=== PATIENT | male | born 1945 | race Caucasian/White ===

== ENCOUNTER 2025-05-11 19:40 | Inpatient (IN) | payer OTHER ==
[~2025-05-11] VITALS: Ht 183.5 cm; Wt 104.5 kg
[2025-05-11 19:55] VITALS: PULSE 91; RESP 24; O2SAT 68
[2025-05-11] MEDS ORDERED: 0.9% SODIUM CHLORIDE 10 ML SYRINGE IVP PRN (20:00)
[2025-05-11 20:09] LABS: PLATELET COUNT (AUTO) 133 K/uL (150-450); RED BLOOD CELL COUNT(AUTO) 3.97 MIL/uL (4.50-5.90); RED CELL DISTRIBUTION WIDTH 15.3 % (11.5-14.5); WHITE BLOOD COUNT (AUTO) 8.6 K/uL (4.5-11.0)
[2025-05-11 20:11] LABS: APPEARANCE,URINE CLEAR (CLEAR); GLUCOSE, URINE (UA) NEGATIVE (NEGATIVE); LEUKOCYTE ESTERASE ,URINE NEGATIVE (NEGATIVE); NITRATE,URINE NEGATIVE (NEGATIVE); OCCULT BLOOD,URINE NEGATIVE (NEGATIVE); SPECIFIC GRAVITIY, URINE 1.018 (1.003-1.030)
[2025-05-11 20:21] LABS: COVID AG,FIA SOURCE NASAL SWAB
[2025-05-11 20:22] LABS: CALCIUM, TOTAL 8.8 mg/dL (8.8-10.5); CREATININE 2.02 mg/dL (0.60-1.30); GLOMERULAR FILTR. RATE CALC 32 mL/min (>60); GLUCOSE,RANDOM 325 mg/dL (70-110); SODIUM SERUM 147 mmol/L (136-145); UREA NITROGEN, BLOOD 46 mg/dL (7-18)
[2025-05-11 20:26] LABS: ASPARTATE AMINOTRANSFERASE 105 U/L (15-37); CREATINE KINASE, TOTAL ONLY 82 U/L (39-308); GLUCOSE,RANDOM 332 mg/dL (70-110); TOTAL PROTEIN, SERUM 6.0 g/dL (6.4-8.2)
[2025-05-11 20:27] LABS: ABG BASE EXCESS -20.0 mmol/L (-2.0-3.0); ABG CARBOXYHEMOGLOBIN 0.6 % (0.5-1.5); ABG HCO3 9.2 mmol/L (21.0-28.0); ABG METHEMOGLOBIN 0.8 % (0.0-1.5); ABG OXYGEN CONTENT 17.3 mL/dL (15.0-23.0); ABG OXYGEN SATURATION 87.5 % (94.0-98.0); ABG OXYHEMOGLOBIN 86.3 % (94.0-98.0); ABG PH 6.826 (7.350-7.450); ABG TOTAL HEMOGLOBIN 14.2 G/dL (13.5-17.5); FRACTIONATED INSPIRED OXYGEN 100.0 % (21-100.0); PO2, ARTERIAL BG 88.3 mmHg (83.0-108.0); SOURCE, BLOOD GAS ARTERIAL; TEMPERATURE, FAHRENHEIT, BG 98.6 FAHREN (96.0-98.6)
[2025-05-11 20:28] LABS: ABG PCO2 87 mmHg (32.0-48.0); ALLEN TEST, BLOOD GAS Positive; FLOW, BLOOD GAS 0.00 L/min (0.00-15.00); O2 DEVICE,BLOOD GAS VENTILATOR (ROOM AIR); PEEP,BG 8 cm H2O; SET RATE, BG 24.0 min.; SITE, BLOOD GAS LFT RADIAL; VT, ABG 400 ml
[2025-05-11 20:31] LABS: RBC MORPHOLOGY COMMENT ABNORMAL RBC MORPH; TROPONIN I-HIGH SENSITIVITY 12 ng/L (<76)
[2025-05-11 20:42] LABS: INFLUENZA TYPE A NEGATIVE FOR TYPE A (NEGATIVE); INFLUENZA TYPE B NEGATIVE FOR TYPE B (NEGATIVE); SARS-COV2 (COVID) ANTIGEN,FIA Negative (Negative)
[2025-05-11] MEDS: NOREPINEPHRINE 8 MG/0.9 % NACL 250 ML IV PRN (20:43)
[2025-05-11 20:44] LABS: LACTIC ACID 14.6 mmol/L (0.4-2.0)
[2025-05-11] MEDS: SODIUM CHLORIDE 0.9% 1,000 ML IV ONE ×2 (20:50→22:22)
[2025-05-11] MEDS: PROPOFOL 1000 MG/ISO-OSM 100 ML IV PRN (21:10)
[2025-05-11 22:15] VITALS: PULSE 89; RESP 33; O2SAT 94
[2025-05-11] MEDS: CEFEPIME HCL 2 GM in DEXTROSE 5%-WATER 50 ML IV ONE (22:22)
[2025-05-11] MEDS: SODIUM BICARBONATE [ADULT] 8.4% 50 MEQ/50 ML SYRINGE IVP ONE (22:22)
[2025-05-11] MEDS ORDERED: ALBUTEROL SULFATE 2.5 MG/0.5 ML NEB SOLUTION NEB PRN (22:45)
[2025-05-11] MEDS ORDERED: MAGNESIUM HYDROXIDE SUSPENSION 30 ML UDCUP PO PRN (22:45)
[2025-05-11] MEDS ORDERED: IPRATROPIUM BROMIDE 0.5 MG/2.5 ML NEB SOLUTION NEB PRN (22:45)
[2025-05-11] MEDS ORDERED: BISACODYL 10 MG RECTAL RECTAL SUPPOSITORY PR PRN (22:45)
[2025-05-11] MEDS ORDERED: ACETAMINOPHEN 325 MG TABLET PO PRN (22:45)
[2025-05-11] MEDS ORDERED: ZOLPIDEM TARTRATE 5 MG TABLET PO PRN (22:45)
[2025-05-11] MEDS ORDERED: HYDROCODONE/ACETAMINOPHEN 5-325 MG TABLET PO PRN (22:45)
[2025-05-11] MEDS ORDERED: MORPHINE SULFATE 2 MG/ML SYRINGE IVP PRN (22:45)
[2025-05-11 22:51] LABS: ABG BASE EXCESS -12.6 mmol/L (-2.0-3.0); ABG CARBOXYHEMOGLOBIN 0.7 % (0.5-1.5); ABG HCO3 14.6 mmol/L (21.0-28.0); ABG METHEMOGLOBIN 0.9 % (0.0-1.5); ABG OXYGEN CONTENT 18.3 mL/dL (15.0-23.0); ABG OXYGEN SATURATION 96.7 % (94.0-98.0); ABG OXYHEMOGLOBIN 95.2 % (94.0-98.0); ABG PCO2 55 mmHg (32.0-48.0); ABG PH 7.110 (7.350-7.450); ABG TOTAL HEMOGLOBIN 13.6 G/dL (13.5-17.5); ALLEN TEST, BLOOD GAS Positive; FLOW, BLOOD GAS 0.00 L/min (0.00-15.00); FRACTIONATED INSPIRED OXYGEN 80.0 % (21-100.0); O2 DEVICE,BLOOD GAS VENTILATOR (ROOM AIR); PEEP,BG 10 cm H2O; PO2, ARTERIAL BG 108.8 mmHg (83.0-108.0); SET RATE, BG 24.0 min.; SITE, BLOOD GAS LFT RADIAL; SOURCE, BLOOD GAS ARTERIAL; TEMPERATURE, FAHRENHEIT, BG 98.6 FAHREN (96.0-98.6); VT, ABG 400 ml
[2025-05-11] MEDS: VANCOMYCIN 1GM/WATER(PEG/NADA) 200 ML IV ONE (22:55)
[2025-05-11] MEDS: *CLINICAL-CEFEPIME DOSING CLINICAL ONE (23:34)
[2025-05-11] MEDS: MetroNIDAZOLE 500 MG/NACL 100 ML IV SCH (23:57)
[2025-05-12] VITALS (16 sets, daily range): BP systolic 93–181; BP diastolic 51–84; PULSE 41–107; RESP 30–36; TEMP 88.8–94.8; O2SAT 92–100
[2025-05-12] MEDS ORDERED: DEXTROSE 50%-WATER 25 GM/50 ML SYRINGE IVP PRN
[2025-05-12 01:04] LABS: CALCIUM, TOTAL 7.7 mg/dL (8.8-10.5); CREATININE 2.41 mg/dL (0.60-1.30); GLOMERULAR FILTR. RATE CALC 26.0 mL/min (>60); GLUCOSE,RANDOM 233.0 mg/dL (70-110); SODIUM SERUM 147.0 mmol/L (136-145); UREA NITROGEN, BLOOD 47.0 mg/dL (7-18)
[2025-05-12 01:09] LABS: ASPARTATE AMINOTRANSFERASE 470.0 U/L (15-37); CREATINE KINASE, TOTAL ONLY 169.0 U/L (39-308); PHOSPHORUS 5.1 mg/dL (2.5-4.9); TOTAL PROTEIN, SERUM 5.6 g/dL (6.4-8.2)
[2025-05-12 01:17] LABS: TROPONIN I-HIGH SENSITIVITY 204 ng/L (<76)
[2025-05-12] MEDS: SODIUM ZIRCONIUM CYCLOSILICATE 5 GM POWDER PACKET PO ONE (01:18)
[2025-05-12] MEDS: HEPARIN SODIUM 25000 UNITS/D5W 250 ML IV PRN (02:46)
[2025-05-12 03:26] LABS: GLUCOMETER DEV NAME(LOC) ICU.S6; GLUCOSE,POINT OF CARE 209 MG/DL (70-110)
[2025-05-12] MEDS ORDERED: VANCOMYCIN 1GM/WATER(PEG/NADA) 200 ML IV PRN (04:00)
[2025-05-12 05:58] LABS: ASPARTATE AMINOTRANSFERASE 522.0 U/L (15-37); CALCIUM, TOTAL 8.0 mg/dL (8.8-10.5); CREATININE 2.63 mg/dL (0.60-1.30); GLOMERULAR FILTR. RATE CALC 23.0 mL/min (>60); GLUCOSE,RANDOM 271.0 mg/dL (70-110); PHOSPHORUS 4.7 mg/dL (2.5-4.9); SODIUM SERUM 145.0 mmol/L (136-145); TOTAL PROTEIN, SERUM 5.7 g/dL (6.4-8.2); UREA NITROGEN, BLOOD 45.0 mg/dL (7-18)
[2025-05-12] MEDS: INSULIN LISPRO 100 UNITS/ML SQ PRN (06:06)
[2025-05-12] MEDS: SODIUM BICARBONATE [ADULT] 8.4% 50 MEQ/50 ML SYRINGE IVP ONE ×2 (07:58→16:17)
[2025-05-12] MEDS: VANCOMYCIN 1GM/WATER(PEG/NADA) 200 ML IV ONE (07:59)
[2025-05-12] MEDS ORDERED: SODIUM CHLORIDE 0.9% 250 ML IV ONE (08:07)
[2025-05-12] MEDS ORDERED: SODIUM CHLORIDE 0.9% 500 ML IV ONE (08:25)
[2025-05-12] MEDS: PANTOPRAZOLE SODIUM 40 MG/VIAL IVP SCH (08:38)
[2025-05-12] MEDS: DOCUSATE SODIUM 100 MG CAPSULE PO SCH (08:38)
[2025-05-12 08:57] LABS: TROPONIN I-HIGH SENSITIVITY 775 ng/L (<76)
[2025-05-12 09:25] LABS: ABG BASE EXCESS -11.3 mmol/L (-2.0-3.0); ABG CARBOXYHEMOGLOBIN 0.4 % (0.5-1.5); ABG HCO3 15.7 mmol/L (21.0-28.0); ABG METHEMOGLOBIN 0.3 % (0.0-1.5); ABG OXYGEN CONTENT 19.5 mL/dL (15.0-23.0); ABG OXYGEN SATURATION 92.5 % (94.0-98.0); ABG OXYHEMOGLOBIN 91.9 % (94.0-98.0); ABG PCO2 41 mmHg (32.0-48.0); ABG TOTAL HEMOGLOBIN 15.1 G/dL (13.5-17.5); FRACTIONATED INSPIRED OXYGEN 90.0 % (21-100.0); PO2, ARTERIAL BG 56.2 mmHg (83.0-108.0); SOURCE, BLOOD GAS ARTERIAL; TEMPERATURE, FAHRENHEIT, BG 92.6 FAHREN (96.0-98.6)
[2025-05-12 09:26] LABS: ABG A-A DIFF O2 550.5 mmHg (10-20.0); ABG PH 7.220 (7.350-7.450); O2 DEVICE,BLOOD GAS VENTILATOR (ROOM AIR); PATIENT RATE, BG 31.0 min.; PEEP,BG 10 cm H2O; SET RATE, BG 30.0 min.; SITE, BLOOD GAS RT BRACHIAL; VT, ABG 400 ml
[2025-05-12 09:27] LABS: SPONTANEOUS VT, BG 386 ml
[2025-05-12] MEDS ORDERED: SODIUM BICARBONATE 50 MEQ/50 ML VIAL ONE (09:56)
[2025-05-12] MEDS ORDERED: LIDOCAINE/PF 1% 30 ML VIAL ONE (09:56)
[2025-05-12] MEDS ORDERED: SODIUM BICARBONATE [ADULT] 8.4% 50 MEQ/50 ML SYRINGE IVP ONE (10:48)
[2025-05-12] MEDS ORDERED: EPINEPHrine 1:10,000 [1 MG/10 ML] SYRINGE IVP ONE (10:48)
[2025-05-12] MEDS: LIDOCAINE 1% 30 ML/SOD BICARB 8.4% 4 ML SQ ONE (11:02)
[2025-05-12 12:08] LABS: ASPARTATE AMINOTRANSFERASE 582.0 U/L (15-37); CALCIUM, TOTAL 7.8 mg/dL (8.8-10.5); CREATININE 3.42 mg/dL (0.60-1.30); GLOMERULAR FILTR. RATE CALC 17.0 mL/min (>60); PHOSPHORUS 5.7 mg/dL (2.5-4.9); SODIUM SERUM 147.0 mmol/L (136-145); TOTAL PROTEIN, SERUM 5.7 g/dL (6.4-8.2); UREA NITROGEN, BLOOD 51.0 mg/dL (7-18)
[2025-05-12 12:11] LABS: GLUCOSE,RANDOM 408.0 mg/dL (70-110)
[2025-05-12] MEDS: INSULIN GLARGINE,HUM.REC.ANLOG 100 UNITS/ML SQ SCH (12:24)
[2025-05-12 12:25] LABS: GLUCOMETER DEV NAME(LOC) ICUN.5; GLUCOSE,POINT OF CARE 237 MG/DL (70-110)
[2025-05-12] MEDS: CEFEPIME HCL 1 GM in DEXTROSE 5%-WATER 50 ML IV SCH (12:39)
[2025-05-12] MEDS: ONDANSETRON HCL 4 MG/2 ML VIAL IVP PRN (13:53)
[2025-05-12] MEDS: NOREPINEPHRINE 8 MG/0.9 % NACL 250 ML IV PRN (14:55)
[2025-05-12] MEDS: VASOPRESSIN 40 UNITS in DEXTROSE 5%-WATER 98 ML IV PRN (15:06)
[2025-05-12 15:49] LABS: ABG A-A DIFF O2 504.2 mmHg (10-20.0); ABG BASE EXCESS -12.4 mmol/L (-2.0-3.0); ABG CARBOXYHEMOGLOBIN 0.2 % (0.5-1.5); ABG HCO3 15.1 mmol/L (21.0-28.0); ABG METHEMOGLOBIN 0.0 % (0.0-1.5); ABG OXYGEN CONTENT 21.2 mL/dL (15.0-23.0); ABG OXYGEN SATURATION 99.0 % (94.0-98.0); ABG OXYHEMOGLOBIN 98.8 % (94.0-98.0); ABG PCO2 43 mmHg (32.0-48.0); ABG PH 7.187 (7.350-7.450); ABG TOTAL HEMOGLOBIN 15.0 G/dL (13.5-17.5); FRACTIONATED INSPIRED OXYGEN 100.0 % (21-100.0); O2 DEVICE,BLOOD GAS VENTILATOR (ROOM AIR); PO2, ARTERIAL BG 171.2 mmHg (83.0-108.0); SITE, BLOOD GAS RT BRACHIAL; SOURCE, BLOOD GAS ARTERIAL; TEMPERATURE, FAHRENHEIT, BG 94.8 FAHREN (96.0-98.6)
[2025-05-12 15:50] LABS: PATIENT RATE, BG 30.0 min.; PEEP,BG 12 cm H2O; SET RATE, BG 30.0 min.; SPONTANEOUS VT, BG 401 ml; VT, ABG 400 ml
[2025-05-12] MEDS: DOXYCYCLINE HYCLATE 100 MG in DEXTROSE 5%-WATER 100 ML IV SCH (17:02)
[2025-05-12 17:31] LABS: GLUCOMETER DEV NAME(LOC) ICU.S6; GLUCOSE,POINT OF CARE 321 MG/DL (70-110)
[2025-05-12 17:43] LABS: ASPARTATE AMINOTRANSFERASE 515.0 U/L (15-37); CALCIUM, TOTAL 7.6 mg/dL (8.8-10.5); CREATININE 3.25 mg/dL (0.60-1.30); GLOMERULAR FILTR. RATE CALC 18.0 mL/min (>60); PHOSPHORUS 5.4 mg/dL (2.5-4.9); SODIUM SERUM 147.0 mmol/L (136-145); TOTAL PROTEIN, SERUM 5.4 g/dL (6.4-8.2); UREA NITROGEN, BLOOD 50.0 mg/dL (7-18)
[2025-05-12 17:45] LABS: GLUCOSE,RANDOM 443.0 mg/dL (70-110)
[2025-05-12] MEDS ORDERED: HEPARIN SODIUM,PORCINE 1,000 UNITS/ML VIAL ONE (18:17)
[2025-05-12] MEDS: HEPARIN SODIUM,PORCINE 1,000 UNITS/ML VIAL IVP ONE ×2 (18:20→18:22)
[2025-05-12 18:26] LABS: GLUCOMETER DEV NAME(LOC) ICUN.5; GLUCOSE,POINT OF CARE 387 MG/DL (70-110)
[2025-05-12 19:11] LABS: GLUCOMETER DEV NAME(LOC) ICU.S6; GLUCOSE,POINT OF CARE 439 MG/DL (70-110)
[2025-05-12 19:19] LABS: ABG BASE EXCESS -9.5 mmol/L (-2.0-3.0); ABG CARBOXYHEMOGLOBIN 0.4 % (0.5-1.5); ABG HCO3 17.2 mmol/L (21.0-28.0); ABG METHEMOGLOBIN 0.3 % (0.0-1.5); ABG OXYGEN CONTENT 20.8 mL/dL (15.0-23.0); ABG OXYGEN SATURATION 98.5 % (94.0-98.0); ABG OXYHEMOGLOBIN 97.8 % (94.0-98.0); ABG PCO2 45 mmHg (32.0-48.0); ABG TOTAL HEMOGLOBIN 15.0 G/dL (13.5-17.5); FRACTIONATED INSPIRED OXYGEN 100.0 % (21-100.0); PO2, ARTERIAL BG 127.8 mmHg (83.0-108.0); SOURCE, BLOOD GAS ARTERIAL; TEMPERATURE, FAHRENHEIT, BG 98.6 FAHREN (96.0-98.6)
[2025-05-12 19:20] LABS: ABG PH 7.222 (7.350-7.450); ALLEN TEST, BLOOD GAS Positive; FLOW, BLOOD GAS 0.00 L/min (0.00-15.00); O2 DEVICE,BLOOD GAS VENTILATOR (ROOM AIR); PEEP,BG 12 cm H2O; SET RATE, BG 30.0 min.; SITE, BLOOD GAS LFT RADIAL; VT, ABG 400 ml
[2025-05-12] MEDS ORDERED: SODIUM CHLORIDE 0.9% 2,000 ML ONE (19:39)
[2025-05-12 22:08] LABS: PLATELET COUNT (AUTO) 36 K/uL (150-450); RED BLOOD CELL COUNT(AUTO) 4.09 MIL/uL (4.50-5.90); RED CELL DISTRIBUTION WIDTH 14.5 % (11.5-14.5); WHITE BLOOD COUNT (AUTO) 7.2 K/uL (4.5-11.0)
[2025-05-12 22:28] LABS: PLATELET MORPHOLOGY COMMENT LARGE PLTS PRESENT; RBC MORPHOLOGY COMMENT ABNORMAL RBC MORPH
[2025-05-12] MEDS ORDERED: CEFEPIME HCL 2 GM in DEXTROSE 5%-WATER 50 ML IV SCH (22:30)
[2025-05-12] MEDS: HEPARIN SODIUM,PORCINE 1,000 UNITS/ML VIAL IVCATH ONE ×2 (22:54)
[2025-05-12] MEDS: PROPOFOL 1000 MG/ISO-OSM 100 ML IV PRN (22:55)
[2025-05-12] MEDS: BUMETANIDE 0.25 MG/ML 4 ML VIAL IVP ONE (22:59)
[2025-05-12] MEDS: ALTEPLASE 2 MG VIAL/STERILE WATER IVCATH ONE ×2 (22:59)
[2025-05-13] VITALS (7 sets, daily range): BP systolic 121–150; BP diastolic 59–87; PULSE 45–62; RESP 30; TEMP 86.6–87.9; O2SAT 99–100
[2025-05-13 00:14] LABS: ABG BASE EXCESS -10.0 mmol/L (-2.0-3.0); ABG CARBOXYHEMOGLOBIN 0.8 % (0.5-1.5); ABG HCO3 17.3 mmol/L (21.0-28.0); ABG METHEMOGLOBIN 0.5 % (0.0-1.5); ABG OXYGEN CONTENT 20.5 mL/dL (15.0-23.0); ABG OXYGEN SATURATION 100.0 % (94.0-98.0); ABG OXYHEMOGLOBIN 98.7 % (94.0-98.0); ABG PCO2 36 mmHg (32.0-48.0); ABG PH 7.280 (7.350-7.450); ABG TOTAL HEMOGLOBIN 14.4 G/dL (13.5-17.5); PO2, ARTERIAL BG 246.1 mmHg (83.0-108.0); SOURCE, BLOOD GAS ARTERIAL; TEMPERATURE, FAHRENHEIT, BG 98.6 FAHREN (96.0-98.6)
[2025-05-13 00:15] LABS: ALLEN TEST, BLOOD GAS Positive; FLOW, BLOOD GAS 0.00 L/min (0.00-15.00); O2 DEVICE,BLOOD GAS VENTILATOR (ROOM AIR); PEEP,BG 12 cm H2O; SET RATE, BG 30.0 min.; SITE, BLOOD GAS LFT RADIAL; VT, ABG 400 ml
[2025-05-13 00:20] LABS: FRACTIONATED INSPIRED OXYGEN 90.0 % (21-100.0)
[2025-05-13 00:54] LABS: ASPARTATE AMINOTRANSFERASE 523.0 U/L (15-37); CALCIUM, TOTAL 7.5 mg/dL (8.8-10.5); CREATININE 3.33 mg/dL (0.60-1.30); GLOMERULAR FILTR. RATE CALC 18.0 mL/min (>60); PHOSPHORUS 4.3 mg/dL (2.5-4.9); SODIUM SERUM 145.0 mmol/L (136-145); TOTAL PROTEIN, SERUM 5.4 g/dL (6.4-8.2); UREA NITROGEN, BLOOD 50.0 mg/dL (7-18)
[2025-05-13 00:55] LABS: GLUCOSE,RANDOM 538.0 mg/dL (70-110)
[2025-05-13] MEDS: POTASSIUM CHLORIDE 15 MEQ in NXSTAGE RFP-402 K0/CA3 5,000 ML IRRIG PRN (03:19)
[2025-05-13] MEDS ORDERED: DEXTROSE 50%-WATER 25 GM/50 ML SYRINGE IVP PRN (04:15)
[2025-05-13] MEDS ORDERED: POTASSIUM CHLORIDE 40 MEQ in SODIUM CHLORIDE 0.45% 1,000 ML IV PRN (04:15)
[2025-05-13] MEDS ORDERED: DEXTROSE 5%-0.45% SODIUM CHL 1,000 ML IV PRN (04:15)
[2025-05-13] MEDS ORDERED: INSULIN REGULAR, HUMAN 100 UNITS/ML IVP PRN (04:15)
[2025-05-13] MEDS ORDERED: SODIUM CHLORIDE 0.45% 1,000 ML IV PRN (04:15)
[2025-05-13] MEDS ORDERED: INSULIN REGULAR, HUMAN 100 UNITS in SODIUM CHLORIDE 0.9% 99 ML IV PRN (04:15)
[2025-05-13] MEDS ORDERED: POTASSIUM CHL 20 MEQ/0.45% NS 1,000 ML IV PRN (04:15)
[2025-05-13] MEDS: SODIUM CHLORIDE 0.9% 1,000 ML IV SCH (04:32)
[2025-05-13] MEDS: INSULIN REGULAR, HUMAN 100 UNITS/ML IVP ONE (04:33)
[2025-05-13 04:51] LABS: GLUCOMETER DEV NAME(LOC) ICUN.5; GLUCOSE,POINT OF CARE 443 MG/DL (70-110)
[2025-05-13 05:16] LABS: GLUCOMETER DEV NAME(LOC) ICU.S6; GLUCOSE,POINT OF CARE 381 MG/DL (70-110)
[2025-05-13] MEDS: PHENYLEPHRINE 200 MG/D5%-WATER 250 ML IV PRN (06:04)
[2025-05-13 06:47] LABS: ASPARTATE AMINOTRANSFERASE 558.0 U/L (15-37); CALCIUM, TOTAL 8.0 mg/dL (8.8-10.5); CREATININE 2.26 mg/dL (0.60-1.30); GLOMERULAR FILTR. RATE CALC 28.0 mL/min (>60); GLUCOSE,RANDOM 400.0 mg/dL (70-110); LACTATE DEHYDROGENASE 1362.0 U/L (85-227); PHOSPHORUS 2.5 mg/dL (2.5-4.9); PLATELET COUNT (AUTO) 22 K/uL (150-450); RED BLOOD CELL COUNT(AUTO) 4.33 MIL/uL (4.50-5.90); RED CELL DISTRIBUTION WIDTH 13.9 % (11.5-14.5); SODIUM SERUM 142.0 mmol/L (136-145); TOTAL PROTEIN, SERUM 5.9 g/dL (6.4-8.2); UREA NITROGEN, BLOOD 38.0 mg/dL (7-18); WHITE BLOOD COUNT (AUTO) 10.6 K/uL (4.5-11.0)
[2025-05-13 06:59] LABS: TROPONIN I-HIGH SENSITIVITY 2875 ng/L (<76)
[2025-05-13 07:44] LABS: PLATELET MORPHOLOGY COMMENT LARGE PLTS PRESENT; RBC MORPHOLOGY COMMENT ABNORMAL RBC MORPH
[2025-05-13 08:01] LABS: ABG A-A DIFF O2 393.6 mmHg (10-20.0); ABG BASE EXCESS -6.3 mmol/L (-2.0-3.0); ABG CARBOXYHEMOGLOBIN 0.4 % (0.5-1.5); ABG HCO3 20.0 mmol/L (21.0-28.0); ABG METHEMOGLOBIN 0.3 % (0.0-1.5); ABG OXYGEN CONTENT 20.5 mL/dL (15.0-23.0); ABG OXYGEN SATURATION 99.3 % (94.0-98.0); ABG OXYHEMOGLOBIN 98.6 % (94.0-98.0); ABG PCO2 27 mmHg (32.0-48.0); ABG PH 7.442 (7.350-7.450); ABG TOTAL HEMOGLOBIN 14.5 G/dL (13.5-17.5); ALLEN TEST, BLOOD GAS Positive; FRACTIONATED INSPIRED OXYGEN 80.0 % (21-100.0); O2 DEVICE,BLOOD GAS VENTILATOR (ROOM AIR); PO2, ARTERIAL BG 159.7 mmHg (83.0-108.0); SITE, BLOOD GAS LFT RADIAL; SOURCE, BLOOD GAS ARTERIAL; TEMPERATURE, FAHRENHEIT, BG 87.0 FAHREN (96.0-98.6)
[2025-05-13 08:02] LABS: PATIENT RATE, BG 30.0 min.; PEEP,BG 12 cm H2O; SET RATE, BG 30.0 min.; SPONTANEOUS VT, BG 392 ml; VT, ABG 400 ml
[2025-05-13] MEDS: VANCOMYCIN 1GM/WATER(PEG/NADA) 200 ML IV ONE (09:54)
[2025-05-13] MEDS: CEFEPIME HCL 1 GM in DEXTROSE 5%-WATER 50 ML IV SCH (09:54)
[2025-05-13] MEDS ORDERED: ONDANSETRON HCL 4 MG/2 ML VIAL IVP PRN ×2 (10:45→11:00)
[2025-05-13] MEDS ORDERED: MORPHINE SULFATE 100 MG/NS/PF 100 ML IV PRN (11:00)
[2025-05-13] MEDS: MORPHINE SULFATE 100 MG/NS/PF 100 ML IV PRN (11:11)
[2025-05-13 16:25] LABS: GLUCOMETER DEV NAME(LOC) ICU.S6; GLUCOSE,POINT OF CARE 397 MG/DL (70-110)
== END 2025-05-13 13:06 | DRG 208 ==
LOC: EMS 19:40 → EDH 22:20 → ICU 05-12 02:00
PROVIDERS: ADMIT Hospitalist; ATTEND Hospitalist
PROC: 5A1945Z Respiratory Ventilation, 24-96 Consecutive Hours (ICD-10-PCS; 2025-05-11)
PROC: 06HY33Z Insertion of Infusion Device into Lower Vein, Percutaneous Approach (ICD-10-PCS; 2025-05-11)
PROC: B54BZZA Ultrasonography of Right Lower Extremity Veins, Guidance (ICD-10-PCS; 2025-05-11)
PROC: 0BH17EZ Insertion of Endotracheal Airway into Trachea, Via Natural or Artificial Opening (ICD-10-PCS; 2025-05-11)
PROC: 5A12012 Performance of Cardiac Output, Single, Manual (ICD-10-PCS; 2025-05-11)
PROC: 02HV33Z Insertion of Infusion Device into Superior Vena Cava, Percutaneous Approach (ICD-10-PCS; principal; 2025-05-12)
PROC: B5181ZA Fluoroscopy of Superior Vena Cava using Low Osmolar Contrast, Guidance (ICD-10-PCS; 2025-05-12)
PROC: B548ZZA Ultrasonography of Superior Vena Cava, Guidance (ICD-10-PCS; 2025-05-12)
PROC: 5A1D70Z Performance of Urinary Filtration, Intermittent, Less than 6 Hours Per Day (ICD-10-PCS; 2025-05-12)
PROC: 5A1D70Z Performance of Urinary Filtration, Intermittent, Less than 6 Hours Per Day (ICD-10-PCS; 2025-05-13)
PROC: 02PYX3Z Removal of Infusion Device from Great Vessel, External Approach (ICD-10-PCS; 2025-05-13)
PROC: 05HM33Z Insertion of Infusion Device into Right Internal Jugular Vein, Percutaneous Approach (ICD-10-PCS; 2025-05-13)
DX: J69.0 Pneumonitis due to inhalation of food and vomit (principal); E43 Unspecified severe protein-calorie malnutrition; J96.00 Acute respiratory failure, unspecified whether with hypoxia or hypercapnia; I21.A1 Myocardial infarction type 2; N17.0 Acute kidney failure with tubular necrosis; E87.0 Hyperosmolality and hypernatremia; E87.20 Acidosis, unspecified; T82.594A Other mechanical complication of infusion catheter, initial encounter; G93.1 Anoxic brain damage, not elsewhere classified; Z20.822 Contact with and (suspected) exposure to COVID-19; I46.9 Cardiac arrest, cause unspecified; E87.5 Hyperkalemia; E04.1 Nontoxic single thyroid nodule; E11.65 Type 2 diabetes mellitus with hyperglycemia; K57.30 Diverticulosis of large intestine without perforation or abscess without bleeding; K80.20 Calculus of gallbladder without cholecystitis without obstruction; Z66 Do not resuscitate; E87.8 Other disorders of electrolyte and fluid balance, not elsewhere classified; Y90.9 Presence of alcohol in blood, level not specified; Z68.31 Body mass index [BMI] 31.0-31.9, adult; I50.9 Heart failure, unspecified; R74.01 Elevation of levels of liver transaminase levels; D69.6 Thrombocytopenia, unspecified; E11.22 Type 2 diabetes mellitus with diabetic chronic kidney disease; N18.9 Chronic kidney disease, unspecified; Y83.8 Other surgical procedures as the cause of abnormal reaction of the patient, or of later complication, without mention of misadventure at the time of the procedure; Y92.238 Other place in hospital as the place of occurrence of the external cause
CPT/HCPCS: 31500; 36556; 36600; 70450; 71045; 71250; 72125; 72192; 74150; 76000; 80048; 80053; 80076; 80202; 81003; 82550; 82805; 82947; 82962; 83605; 83615; 83735; 83880; 84100; 84145; 84484; 85025; 85610; 85730; 87040; 87081; 87804; 90947; 93005; 93306; 93970; 94002; 94003; 96365; 96367; 96368; 99291; J0171; J0692; J1644; J1815; J2270; J2370; J2405; J2470; J2704; J2997; J3480; J3490; J7030; J7040; J7050; J7060; 36415-L1; 36415-TC